=== PATIENT | female | born 1955 | race African-American/Black ===

== ENCOUNTER 2018-02-04 13:31 | Outpatient (CLI) | payer OTHER ==
--- NOTE | 2018-02-04 14:20 | RAD ---
BILATERAL KNEES UPRIGHT FOUR VIEWS: History: 62-year-old female with history of knee pain. FINDINGS: Severe tricompartment arthrosis changes of both knees with marked narrowing, particularly the medial compartments. Evidence for suprapatella bursal fluid distention as seen on the lateral view. This cer tainly raises concern for knee joint effusion. IMPRESSION: Severe tricompartment degenerative changes. Evidence for right knee joint suprapatellar joint fluid. No fracture or dislocation. POS: NONA
== END 2018-02-04 13:32 | disposition home or self-care (01) ==
LOC: NAV RAD 13:31
PROVIDERS: ATTEND Orthopaedic Surgery
DX: M25.561 Pain in right knee (principal); M25.562 Pain in left knee; M17.0 Bilateral primary osteoarthritis of knee
CPT/HCPCS: 73565